=== PATIENT | male | born 1980 | race Caucasian/White ===

== ENCOUNTER 2019-03-07 22:45 | Inpatient (IN) | payer OTHER ==
--- NOTE | 2019-03-07 23:16 | RAD ---
EXAM: Single view of the chest HISTORY: Chest pain COMPARISON: None FINDINGS: Single view of the chest shows a normal sized cardiomediastinal silhouette. There is no rahul dence of consolidation, mass, or pleural effusion. The bones are unremarkable. IMPRESSION: No evidence of acute cardiopulmonary disease
[2019-03-07 23:22] LABS: #Basophils 0.1 thou/uL (0.0-0.2); #Eosinphils 0.1 thou/uL (0.0-0.7); #Lymphocytes 2.1 thou/uL (1.20-3.40); #Neutrophils 6.3 thou/uL (1.40-6.50); %Basophils 0.7 % (0.0-1.0); %Eosinophils 1.3 % (0.0-10.0); %Lymphocytes 22.2 % (21.0-51.0); %Monocytes 10.1 % (0.0-10.0); %Neutrophils 65.6 % (42.0-75.0); Hemoglobin 15.5 g/dL (14.0-18.0); Mean Corpuscular HGB CONC 33.4 g/dL (32.0-36.0); Mean Corpuscular Hemoglobin 29.1 pg (27.0-31.0); Mean Platelet Volume 10.7 fL (7.4-10.4); Platelet Count 132 thou/uL (130-400); RBC Distribution Width 12.8 % (11.5-14.5); Red Blood Cell (RBC) Count 5.31 mill/uL (4.70-6.10); White Blood Cell (WBC) Count 9.6 thou/uL (4.8-10.8)
[2019-03-07 23:46] LABS: ALT (SGPT) 30 U/L (8-55); AST (SGOT) 24 U/L (5-34); Albumin 4.5 g/dL (3.5-5.0); Alkaline Phosphatase 63 U/L (40-150); Anion Gap 15 mmol/L (10-20); BUN (Urea Nitrogen) 17 mg/dL (8.9-20.6); Bilirubin, Total 0.6 mg/dL (0.2-1.2); CK (CPK) 179 U/L (30-200); Calc. Creatinine Clearance 0 mL/min (70-130); Calcium 9.1 mg/dL (7.8-10.44); Carbon Dioxide 22 mmol/L (22-29); Chloride 105 mmol/L (98-107); Estimated GFR-MDRD 64; Globulin 2.4 g/dL (2.4-3.5); Glucose 124 mg/dL (70-105); Potassium 3.9 mmol/L (3.5-5.1); Protein, Total 6.9 g/dL (6.0-8.3); Sodium 138 mmol/L (136-145)
[2019-03-08 00:11] LABS: CKMB 4.1 ng/mL (0-6.6)
[2019-03-08] MEDS ORDERED: Enoxaparin Sodium 100 MG/ML SYRINGE ONE (01:02)
[2019-03-08] MEDS ORDERED: Ondansetron PF 4 MG/2 ML Vial IVP PRN (01:52)
[2019-03-08] MEDS ORDERED: Acetaminophen 325 MG TAB PO PRN (01:52)
[2019-03-08] MEDS ORDERED: Acetaminophen 650 MG Suppository PR PRN (01:52)
[2019-03-08] MEDS ORDERED: Ondansetron ODT 4 MG TAB PO PRN (01:52)
[2019-03-08 01:53] VITALS: BMI 33.9
[2019-03-08] MEDS ORDERED: Nitroglycerin 0.4 MG TAB (25 Tab Bottle) SL PRN ×3 (01:54→15:36)
[2019-03-08 02:52] LABS: Troponin I 1.119 ng/mL (< 0.028)
--- NOTE | 2019-03-08 04:02 | HP ---
PRIMARY CARE DOCTOR: The patient has no PCP. CODE STATUS: Full code. TIME OF EVALUATION: 1:20 a.m. CHIEF COMPLAINT: Chest pain. HISTORY OF PRESENT ILLNESS: This is a 39-year-old male patient, with past medical history of no significant medical problems. However, in the family, he has some past medical history of coronary artery disease with CABG in her mom, her mother had an acute MD at the age of 28 and the patient has . The patient presented today with chest pain, has been on and off for about a year improved with rest and with medication. In the ER, today the pain was more severe, around 8/10, and the patient decided to go to the ER to take care of these problems that has been bothering him for quite sometime. The symptoms were severe. REVIEW OF SYSTEMS: CONSTITUTIONAL: No fever, chills, or generalized weakness. RESPIRATORY: No cough, sputum production, or shortness of breath. CARDIOVASCULAR: The patient has chest pain, no palpitation. GASTROINTESTINAL: No nausea, vomiting, diarrhea, or abdominal pain. 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 GENITOURINARY: No burning on urination. EXTREMITIES: No leg swelling. All other systems were reviewed and negative except for the findings mentioned above. PAST MEDICAL HISTORY: As mentioned in the HPI. FAMILY HISTORY: As mentioned in the HPI. PAST SURGICAL HISTORY: Left ACL surgery, 1998. PSYCHIATRIC HISTORY: No previous psych history. SOCIAL HISTORY: The patient reported the use of marijuana. No other recreational drugs as well as cigarettes half a pack per day. The patient smoked for 25 years. KNOWN ALLERGIES: To sulfa. REPORTED MEDICATIONS: The patient takes no medications at home. PHYSICAL EXAMINATION: VITAL SIGNS: Blood pressure 159/97, heart rate 89, respiratory rate was 20, temperature 99.2. Pain was 2/10. GENERAL: The patient is obese, alert, oriented, no acute distress. HEENT: Eyes, normal conjunctivae. Moist oral mucosa. Anicteric. No JVD. RESPIRATORY: Bilateral air entry. No rales or wheezes. Symmetric expansion. CARDIOVASCULAR: Normal rate, regular rhythm. No murmurs. No gallop. No edema. ABDOMEN: Soft. Normal bowel sounds. MUSCULOSKELETAL: Baseline range of motion and strength. No tenderness. SKIN: Warm, intact. No pallor. No rash. No redness. Capillary refill seems to be intact. NEUROLOGICAL: No evidence of any new focal weakness. Cranial nerves seems to be intact. PSYCHIATRIC: The patient is in good mood. No optimal judgment. IMAGING STUDIES: EKG was reviewed. The patient has T-wave inverted in leads II, III, aVF, V4, V5, V6. ME 140, QRS 92, QT corrected 407. Chest x-ray was done. No evidence of acute cardiopulmonary disease. LABORATORY DATA: Labs were done. The patient has a white count of 9.6, hemoglobin 15.5, MCV 87, platelet count 132. Chemistry; sodium 138, potassium 3.9, chloride 105, carbon dioxide 22, anion gap 15, BUN 17, creatinine 1.26, GFR 64, glucose 124, calcium 9.1. LFTs were negative. Troponin 0.925, the second one is 1.19. ASSESSMENT AND PLAN: The patient will be placed in the hospital with the following medical problems: 1. Acute coronary syndrome. The patient has a [id number] myocardial infarction, will be treated with beta blockers, statins, aspirin, and Lovenox. Dr. Spencer has been consulted, will see the patient in the morning. We will follow recommendations. 2. Obesity. The patient has been advised to lose weight. 3. Hyperglycemia due to acute physical distress. 4. Deep venous thrombosis prophylaxis. Job ID: [id number]
[2019-03-08 05:36] LABS: #Basophils 0.1 thou/uL (0.0-0.2); #Eosinphils 0.1 thou/uL (0.0-0.7); #Lymphocytes 2.7 thou/uL (1.20-3.40); #Monocytes 0.7 thou/uL (0.11-0.59); #Neutrophils 4.8 thou/uL (1.40-6.50); %Eosinophils 1.3 % (0.0-10.0); %Lymphocytes 32.4 % (21.0-51.0); %Monocytes 8.2 % (0.0-10.0); %Neutrophils 57.2 % (42.0-75.0); Hemoglobin 15.6 g/dL (14.0-18.0); Mean Corpuscular HGB CONC 33.8 g/dL (32.0-36.0); Mean Corpuscular Hemoglobin 29.3 pg (27.0-31.0); Mean Corpuscular Volume 86.7 fL (78.0-98.0); Mean Platelet Volume 10.7 fL (7.4-10.4); Platelet Count 131 thou/uL (130-400); RBC Distribution Width 12.8 % (11.5-14.5); Red Blood Cell (RBC) Count 5.33 mill/uL (4.70-6.10); White Blood Cell (WBC) Count 8.3 thou/uL (4.8-10.8)
[2019-03-08 05:51] LABS: Anion Gap 12 mmol/L (10-20); BUN (Urea Nitrogen) 15 mg/dL (8.9-20.6); Calc. Creatinine Clearance 144 mL/min (70-130); Carbon Dioxide 21 mmol/L (22-29); Chloride 107 mmol/L (98-107); Estimated GFR-MDRD 87; Glucose 96 mg/dL (70-105); Potassium 4.1 mmol/L (3.5-5.1); Sodium 136 mmol/L (136-145)
[2019-03-08 05:54] LABS: Troponin I 1.328 ng/mL (< 0.028)
[2019-03-08] MEDS: Metoprolol Tartrate 25 MG TAB PO SCH ×2 (08:04→20:21)
--- NOTE | 2019-03-08 09:55 | PDOC.CTH ---
Cardiology Progress Note - Subjective HPI: This is a 39 yo M who came in last night with chest pain. This has been going on for about 1 year. He states previously he was able to walk around the grocery store but over the last few months the chest pain has been coming on with exertion walking or doing yardwork. He describes pain as 8/10, pressure, radiating to neck and left arm. The last few days the pain has been coming on at rest and lasting about 45 minutes. He took ASA before coming to the ER. He smokes ppd for 25 years. His mother had NH at age 28 and CABG at age 38. PMH: neg PSH: ACL 1998 Meds: none, occasionally uses albuterol Allergies: sulfa Soc Hx: ppd 25 years, THC, no alc, no other drugs Fm Hx: mother had NH at age 28 and CABG at age 38, father lung cancer REVIEW OF SYSTEMS: Gen: no fever, chills, or sweats Neuro: no numbness/tingling, no weakness, denies headache Eyes: no visual changes Resp: no cough, no SOB, no wheeze Card: SEE HPI GI: no N/V/D, no abdominal pain : no dysuria, no hematuria MSK: no myalgias, no joint pain/stiffness Heme: no blood thinners Skin: no rash, no erythema PHYSICAL EXAMINATION: General: NAD, alert and oriented x3 HEENT: PERRLA, EOMI, normal sclera, oropharynx without erythema or exudate Neck: Supple. Full ROM. Heart/Cardiovascular System: RRR, Cap refill < 3 seconds, no rub, no murmur Lungs/Respiratory System: clear to auscultation bilaterally. No increased work of breathing. Room air. Abdomen/Gastro-Intestinal System: no abdominal tenderness, normal bowel sounds, no masses, no organomegaly Extremities: Warm extremities. No cyanosis or edema. Neuro: No gross deficits appreciated. CN 2-12 grossly intact Psychiatry: Awake, Alert and cooperative with exam Skin: No lesions, rashes, or ulcers Musculoskeletal: Full ROM EKG: t wave inv inferior leads, ST depression V4-V6 A/P: # Unstable Angina - was exertional in past, now coming on at rest - trop 0.925-> 1.119 -> 1.328 - LUIGI 4 ASA, >2 angina episodes, EKG changes, trop - strong fm hx, smoking - ordered EKG with posterior leads ordered - discussed with Dr Traylor to go for cath today - Objective Vital Signs Temp Pulse Resp BP BP Pulse Ox 03/08/19 07:58 98.1 F 65 20 125/83 96 03/08/19 04:00 98.5 F 67 20 133/81 99 03/08/19 01:46 98.2 F 71 16 154/87 H 98 Weight 98.293 kg - Labs Result Diagrams: 03/08/19 05:11 03/08/19 05:11 Troponin/CKMB CK-MB (CK-2) 4.1 ng/mL (0-6.6) 03/07/19 23:09 Troponin I 1.328 ng/mL (< 0.028) H* 03/08/19 05:11
[2019-03-08] MEDS ORDERED: Communication Order-Pharmacy FS SCH ×2 (11:45→15:36)
[2019-03-08] MEDS ORDERED: Nitroglycerin 100MG/250ML BOT 250 ML ONE (12:20)
[2019-03-08] MEDS ORDERED: Heparin 10,000 UNITS/1 ML VIAL ONE (12:20)
--- NOTE | 2019-03-08 13:03 | CON ---
DATE OF CONSULTATION: Please also refer to the notes dictated by the resident, Dr. Jarrett. INDICATION FOR CONSULTATION: A 39-year-old patient with non ST-segment elevation myocardial infarction. HISTORY OF PRESENT ILLNESS: This very unfortunate 39-year-old gentleman, who is very pleasant. He has had no previous cardiac history, but has been having some chest discomfort for quite some time, became worse. He presented to the emergency room. Cardiac enzymes are indicative of a non-ST segment elevation myocardial infarction. He will be advised to undergo cardiac catheterization. The first troponin I was 0.925, has increased up to 1.328. Blood sugar was 124. He does not give a history of having diabetes or any other previous history. He does have a history of tobacco abuse; however, on and off for his last approximately 15 to 20 years. He denies any hypercholesterolemia or diabetes. He is unaware of any history of hypertension in the past. He does have family history of coronary artery disease. PAST MEDICAL HISTORY: Please refer to the notes dictated by Dr. Jarrett. SOCIAL HISTORY: Please refer to the notes dictated by Dr. Jarrett. REVIEW OF SYSTEMS: Please refer to the notes dictated by Dr. Jarrett. His review of systems, also refer to those notes. He denies any significant , GI, or pulmonary problems. MEDICATIONS: Please refer to the notes dictated by Dr. Jarrett. ALLERGIES: PLEASE REFER TO THE NOTES DICTATED BY DR. JARRETT. PHYSICAL EXAMINATION: GENERAL: Revealed a well-developed, well-nourished gentleman, who is in no acute distress at this time. VITAL SIGNS: Blood pressure 125/83. He is afebrile. Heart rate 65, it was sinus rhythm. Respiratory rate was about 20. HEENT: Normocephalic and atraumatic. Carotid pulses are present without any bruits. CHEST: Clear to auscultation. CARDIOVASCULAR: Reveals a regular rate and rhythm. I do not hear any significant murmurs, heaves, thrills, bruits or rubs. ABDOMEN: Shows some obesity. EXTREMITIES: Showed no clubbing, cyanosis, or edema. Pedal pulses are present. Radial pulses are present. NEUROLOGIC: The patient appears to be intact. LABORATORY DATA: As per Dr. Jarrett. We will need to address the troponin I. ASSESSMENT AND PLAN: Given the fact that he is young and has risk factors of coronary artery disease, and continues to have elevation of cardiac enzymes, I have advised him to undergo cardiac catheterization. I have explained the procedure and the risks to him to include bleeding, infection, possibility of myocardial infarction, CVA, renal insufficiency, allergic contrast reaction, and the possibility of and he understands and agrees to proceed. We will plan for urgent cardiac catheterization to evaluate his coronary status and he may need to undergo further intervention. Job ID: [id number]
[2019-03-08] MEDS ORDERED: Verapamil 5 MG/2 ML VIAL ONE (13:54)
[2019-03-08] MEDS ORDERED: Heparin 25,000 units/D5W 500 ML IVPB SCH (14:00)
[2019-03-08 14:19] LABS: Platelet Count 139 thou/uL (130-400)
[2019-03-08] MEDS ORDERED: Iopamidol 370 76% 100 ML VIAL ONE (14:32)
[2019-03-08] MEDS ORDERED: Sodium Chloride 0.9% 200 ML IV PRN ×2 (14:54→15:36)
[2019-03-08] MEDS ORDERED: Acetaminophen/Codeine 30-300mg Tablet PO PRN ×4 (14:54→15:36)
[2019-03-08] MEDS: Sodium Chloride 0.9% 1,000 ML IV SCH (15:31)
[2019-03-08] MEDS: Heparin 10,000 UNITS/ 10 ML VIAL SLOW IVP SCH ×2 (15:42→22:35)
--- NOTE | 2019-03-08 17:30 | PDOC.EVN ---
Event Note - Event Note Event Note: Chart reviewed, pt seen. Feels better. S1, S2, reg Lungs CTA. Pt will likely need cardiac cath.
[2019-03-08] MEDS ORDERED: Atorvastatin Calcium 40 MG TAB PO SCH (21:00)
--- NOTE | 2019-03-08 21:13 | CON ---
DATE OF CONSULTATION: HISTORY OF PRESENT ILLNESS: This is a 39-year-old gentleman with about a year's history of chest pain with a more severe episode prompting a visit to the emergency room last night where his troponin showed slight bump. He has been pain-free since then. He underwent cardiac catheterization today showing severe three-vessel disease including an occluded right, occluded LAD, diseased diagonal, and obtuse marginal branches. His left ventricular systolic function was relatively well preserved. PAST MEDICAL HISTORY: The patient denies any history of hypertension, diabetes mellitus, or dyslipidemia, but admits to not seeing a physician. FAMILY HISTORY: He does have a family history of heart disease at a young age. 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 PAST SURGICAL HISTORY: Left knee surgery many years ago. The patient is . ALLERGIES: TO SULFA. MEDICATIONS: No current home medicines. PHYSICAL EXAMINATION: GENERAL: Appears stated age. VITAL SIGNS: 5 feet 7 inches, 316 pounds, blood pressure 140/80, heart rate 60. NECK: No carotid bruits. LUNGS: Clear to auscultation anteriorly. CARDIAC: Regular rate and rhythm. No murmurs. ABDOMEN: Obese, nontender. No masses. EXTREMITIES: No peripheral edema. Palpable pedal pulses bilaterally. A dressing on the right radial artery. Left radial artery is palpable and is nondominant arm and has a good Jose test. PLAN: At this time is for multivessel bypass grafting using COWART and radial. Informed consent has been obtained. Job ID: [id number]
[2019-03-09] MEDS ORDERED: CEFAZOLIN 2 GM in Premix Bag 1 BAG IVPB SCH (05:00)
[2019-03-09] MEDS: Metoprolol Tartrate 25 MG TAB PO SCH (05:29)
[2019-03-09] MEDS: Sodium Chloride 0.9% 1,000 ML IV SCH (05:29)
[2019-03-09 05:44] LABS: Cardiac Risk 6.4 (Less than 4.5)
[2019-03-09] MEDS: Heparin 10,000 UNITS/ 10 ML VIAL SLOW IVP SCH (06:33)
[2019-03-09] MEDS ORDERED: Albumin 5% 0 ML ONE (06:42)
[2019-03-09] MEDS ORDERED: Heparin 10,000 UNITS/1 ML VIAL 30,000 UNITS in Sodium Chloride 0.9% 1,000 ML FS SCH (07:00)
[2019-03-09] MEDS ORDERED: Midazolam HCl 2 mg/2 ml Vial ONE (08:36)
[2019-03-09] MEDS ORDERED: Midazolam HCl 5 mg/5 ml Vial ONE (08:57)
[2019-03-09] MEDS ORDERED: Fentanyl 250 MCG/5 ML VIAL ONE (08:57)
[2019-03-09] MEDS ORDERED: Rocuronium Bromide 50 MG/5 ML VIAL ONE (13:51)
[2019-03-09] MEDS ORDERED: Protamine Sulfate 250 MG/25 ML VIAL ONE (13:52)
[2019-03-09] MEDS ORDERED: Heparin 30,000 units/30 ml VIAL ONE (13:52)
[2019-03-09] MEDS ORDERED: Thrombin 5000 UNITS/5 ML VIAL ONE (13:52)
[2019-03-09] MEDS ORDERED: Cardioplegic Soln 1,000 ML BAG ONE (13:52)
[2019-03-09] MEDS ORDERED: Calcium Chloride 1 GM/10 ML Abboject SYRINGE ONE (13:52)
[2019-03-09] MEDS ORDERED: Papaverine 60 MG/2 ML VIAL ONE (13:52)
[2019-03-09] MEDS ORDERED: PROPOFOL 200 MG/20 ML VIAL ONE (13:52)
[2019-03-09] MEDS ORDERED: Lidocaine 2% PF 100 mg/5 ml Syringe ONE (13:52)
[2019-03-09] MEDS ORDERED: Aminocaproic Acid 5 GM/20 ML VIAL ONE (13:52)
[2019-03-09] MEDS ORDERED: Magnesium 5 GM/10 ML VIAL ONE (13:52)
[2019-03-09] MEDS ORDERED: Potassium Chloride 60 MEQ/30 ML VIAL ONE (13:52)
[2019-03-09] MEDS ORDERED: Vecuronium 10 MG VIAL ONE (13:52)
[2019-03-09] MEDS ORDERED: ePHEDrine 50 MG/ML VIAL ONE (13:52)
[2019-03-09] MEDS ORDERED: Sodium Bicarb 50 MEQ/50 ML VIAL ONE (13:52)
[2019-03-09] MEDS ORDERED: Heparin 5,000 UNITS/ML VIAL ONE (13:52)
[2019-03-09] MEDS ORDERED: Phenylephrine HCL 10 MG/ML VIAL ONE (13:52)
[2019-03-09] MEDS ORDERED: Mannitol 12.5 GM/50 ML ONE (13:52)
[2019-03-09] MEDS ORDERED: Rocuronium Bromide 10 MG/ML (10ML VIAL) ONE (13:52)
[2019-03-09] MEDS ORDERED: Norepinephrine 8 MG in Sodium Chloride 0.9% 250 ML 250 ML IVPB PRN (15:25)
[2019-03-09] MEDS ORDERED: Fentanyl 100 MCG/2 ML VIAL SLOW IVP PRN (15:25)
[2019-03-09] MEDS ORDERED: hydrALAZINE 20 MG/ML VIAL SLOW IVP PRN (15:25)
[2019-03-09] MEDS ORDERED: Post-Op Insulin Drip Protocol IVPB ONE (15:25)
[2019-03-09] MEDS ORDERED: Acetaminophen 325 MG TAB PO PRN (15:25)
[2019-03-09] MEDS ORDERED: HYDROcodone/Acetaminophen 5/325 mg Tablet PO PRN (15:25)
[2019-03-09] MEDS ORDERED: Guaifenesin DM 100-10/5 ML UDCUP PO PRN (15:25)
[2019-03-09] MEDS ORDERED: Bisacodyl 5 MG TAB PO PRN (15:25)
[2019-03-09] MEDS ORDERED: Bisacodyl 10 MG SUPP PR PRN (15:25)
[2019-03-09] MEDS ORDERED: Hetastarch 6% 500 ML 500 ML IVPB PRN (15:25)
[2019-03-09] MEDS ORDERED: Nitroglycerin 50 MG/250 ML BOT 250 ML IVPB PRN (15:25)
[2019-03-09] MEDS ORDERED: Morphine 2 MG/ML SYRINGE SLOW IVP PRN (15:25)
[2019-03-09] MEDS ORDERED: Potassium Chloride 20 MEQ/100 ML PREMIX BAG IVPB PRN (15:25)
[2019-03-09] MEDS ORDERED: Promethazine HCl 25 MG/ML VIAL IM PRN (15:25)
[2019-03-09] MEDS ORDERED: Magnesium 2 GM/50 ML 2 GM in Premix Bag 1 BAG IVPB SCH (15:25)
[2019-03-09] MEDS ORDERED: Mag-Al 1200 mg/1200 mg/30 ML UDCUP PO PRN (15:25)
[2019-03-09] MEDS ORDERED: DOPamine 400 MG/D5W 250 ML 250 ML IVPB PRN (15:25)
--- NOTE | 2019-03-09 15:50 | RAD ---
Chest one view HISTORY: Heart surgery. COMPARISON: 03/07/2019. FINDINGS: Cardiac silhouette is magnified by projection. Pulmonary vasculature upper limits of normal . Mediastinum is midline. Postoperative changes now evident. Tip of an endotracheal catheter overlies the thoracic inlet. Nasogastric tube descends the abdomen. Bilateral thoracostomy tubes and mediastinal drain partially visualized. Tip of a right subclavian central venous catheter overlies the cavoatrial junction. Mild atelectasis at each base. No evidence of pneumothorax. 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 IMPRESSION: Postoperative changes mediastinum with lines and tubes as detailed above.
[2019-03-09 15:52] LABS: #Basophils 0.1 thou/uL (0.0-0.2); #Lymphocytes 1.4 thou/uL (1.20-3.40); #Monocytes 1.1 thou/uL (0.11-0.59); #Neutrophils 15.7 thou/uL (1.40-6.50); %Basophils 0.5 % (0.0-1.0); %Eosinophils 0.3 % (0.0-10.0); %Lymphocytes 7.7 % (21.0-51.0); %Neutrophils 85.6 % (42.0-75.0); Mean Corpuscular HGB CONC 33.2 g/dL (32.0-36.0); Mean Corpuscular Hemoglobin 29.2 pg (27.0-31.0); Mean Platelet Volume 10.5 fL (7.4-10.4); Platelet Count 96 thou/uL (130-400); RBC Distribution Width 12.8 % (11.5-14.5); Red Blood Cell (RBC) Count 5.14 mill/uL (4.70-6.10); White Blood Cell (WBC) Count 18.4 thou/uL (4.8-10.8)
[2019-03-09] MEDS ORDERED: Morphine 4 MG/ML VIAL ONE (15:55)
[2019-03-09 15:57] LABS: INR-International Normal Ratio 1.1; PTT 25.9 SEC (22.9-36.1); Prothrombin Time 14.3 SEC (12.0-14.7)
[2019-03-09] MEDS ORDERED: Nitroglycerin 50 MG/250 ML BOT 0 ML ONE (15:58)
[2019-03-09 16:06] LABS: Actual Bicarbonate (HCO3a) 22.5 mEq/L (22-28); Base Excess (BEa) -3.2 mEq/L (-2.0 to +3.0); CO2 Tension 42.9 mmHg (35.0-45.0); Calcium, Ionized 1.08 mmol/L (1.12-1.30); Carboxyhemoglobin (COHb) 1.4 gm% (0.0-3.0); O2 Tension (PaO2) 91.8 mmHg (80.0-100.0); Potassium - ABG Lab 4.02 mmol/L (3.70-5.30); pH, Arterial 7.34 (7.35-7.45)
[2019-03-09 16:08] LABS: Anion Gap 11 mmol/L (10-20); BUN (Urea Nitrogen) 11 mg/dL (8.9-20.6); Calc. Creatinine Clearance 166 mL/min (70-130); Calcium 7.7 mg/dL (7.8-10.44); Carbon Dioxide 23 mmol/L (22-29); Chloride 108 mmol/L (98-107); Estimated GFR-MDRD Greater than 90; Glucose 133 mg/dL (70-105); Potassium 4.2 mmol/L (3.5-5.1); Sodium 138 mmol/L (136-145)
[2019-03-09 16:12] LABS: ALV-art Gradient 211.075 (0-20); Puncture Site ALINE
[2019-03-09] MEDS ORDERED: Insulin Regular 300 UNITS/3 ML VIAL SC PRN (16:23)
[2019-03-09] MEDS ORDERED: HUMULIN R 100 UNITS in Sodium Chloride 0.9% 100 ML IVPB SCH (16:23)
[2019-03-09] MEDS ORDERED: Dextrose 5% in Water 1,000 ML IV PRN (16:23)
[2019-03-09] MEDS ORDERED: Dextrose 50% Abboject 50 ML SYRINGE SLOW IVP PRN (16:23)
[2019-03-09] MEDS: CEFAZOLIN 2 GM in Premix Bag 1 BAG IVPB SCH (16:43)
[2019-03-09] MEDS: Ketorolac Tromethamine 30 MG/ML VIAL IVP SCH ×2 (17:15→23:01)
[2019-03-09] MEDS: Ondansetron PF 4 MG/2 ML Vial IVP PRN (17:15)
[2019-03-09 17:24] LABS: Actual Bicarbonate (HCO3a) 22.1 mEq/L (22-28); CO2 Tension 39.9 mmHg (35.0-45.0); Calcium, Ionized 1.08 mmol/L (1.12-1.30); O2 Tension (PaO2) 110.2 mmHg (80.0-100.0); pH, Arterial 7.36 (7.35-7.45)
[2019-03-09 17:25] LABS: ALV-art Gradient 53.825 (0-20); Puncture Site LINE
--- NOTE | 2019-03-09 17:56 | PDOC.PN ---
- Subjective Encounter Start Date: 03/09/19 Encounter Start Time: 15:50 Subjective: on vent, post cabg -: recieving blood - Objective Resuscitation Status - Order Detail: 03/08/19 01:52 Resuscitation Status Routine Resuscitation Status: FULL: Full Resuscitation MAR Reviewed: Yes Vital Signs & Weight: Vital Signs (12 hours) Temp Pulse Resp BP BP Pulse Ox 03/09/19 17:34 99 03/09/19 15:46 109 H 121/72 03/09/19 15:35 97.0 F L 15 98 03/09/19 07:38 98.1 F 58 L 14 120/65 96 Weight Weight 216 lb 11.2 oz Most Recent Monitor Data Heart Rate from ECG 93 NIBP 165/109 NIBP BP-Mean 127 Respiration from ECG 21 SpO2 99 I&O: 03/08/19 03/09/19 03/10/19 06:59 06:59 06:59 Intake Total 1030 Output Total 800 260 Balance 230 -260 Result Diagrams: 03/09/19 15:40 03/09/19 15:40 Additional Labs: Accuchecks 03/09/19 03/09/19 03/09/19 15:43 13:52 13:28 POC Glucose 122 H 140 H 119 H 03/09/19 03/09/19 12:49 11:31 POC Glucose 117 H 111 H Phys Exam - Physical Examination HEENT: PERRLA, sclera anicteric Neck: no JVD, supple Respiratory: no wheezing chest tubes+ Cardiovascular: RRR, no significant murmur Gastrointestinal: soft, non-tender, positive bowel sounds Musculoskeletal: no edema, pulses present Neurological: non-focal Dx/Plan (1) S/P CABG (coronary artery bypass graft) Code(s): Z95.1 - PRESENCE OF AORTOCORONARY BYPASS GRAFT Status: Acute (2) CAD (coronary artery disease) Code(s): I25.10 - ATHSCL HEART DISEASE OF [place] CORONARY ARTERY W/O ANG PCTRS Status: Acute Qualifiers: Coronary Disease-Associated Artery/Lesion type: bypass graft [place] vs. transplanted heart: [place] heart (3) Dyslipidemia Code(s): E78.5 - HYPERLIPIDEMIA, UNSPECIFIED Status: Acute (4) Tobacco abuse Code(s): Z72.0 - TOBACCO USE Status: Chronic (5) NSTEMI (non-ST elevated myocardial infarction) Code(s): I21.4 - NON-ST ELEVATION (NSTEMI) MYOCARDIAL INFARCTION Status: Acute (6) Obesity (BMI 30.0-34.9) Code(s): E66.9 - OBESITY, UNSPECIFIED Status: Chronic - Plan just arrived from OR, is on vent -: hemostable now -: weaning per protocol -: continue asp, nebs -: will f/u * . Review of Systems - Medications/Allergies Allergies/Adverse Reactions: Allergies Allergy/AdvReac Type Severity Reaction Status Date / Time Sulfa (Sulfonamide Allergy Verified 03/08/19 02:01 Antibiotics) Medications: Current Medications Acetaminophen (Tylenol) 650 mg PO Q6H PRN PRN Reason: Headache/Fever Or Mild Pain Hydrocodone Bitart/Acetaminophen ([place] 5/325) 1 tab PO Q4H PRN PRN Reason: Moderate Pain (4-6) Hydrocodone Bitart/Acetaminophen ([place] 5/325) 2 tab PO Q4H PRN PRN Reason: Severe Pain (7-10) Al Hydroxide/Mg Hydroxide (Maalox) 30 ml PO Q4H PRN PRN Reason: Indigestion Albumin Human (Albumin 5%) 12.5 gm IVPB Q6H PRN PRN Reason: To Maintain SBP> 90 mmHG Stop: 03/10/19 15:26 Albumin Human (Albumin 5%) 25 gm IVPB Q6H PRN PRN Reason: To Maintain SBP > 90 mmHG Stop: 03/10/19 15:26 Albuterol/Ipratropium (Duoneb) 3 ml NEB [id number] PRN PRN Reason: SHORTNESS OF BREATH Albuterol/Ipratropium (Duoneb) 3 ml NEB Q3DT-[id number] JUAN A Aspirin (Aspirin) 325 mg PO DAILY JUAN A Bisacodyl (Dulcolax) 10 mg PO Q12H PRN PRN Reason: Constipation Bisacodyl (Dulcolax) 10 mg MT Q12H PRN PRN Reason: Constipation Dextrose/Water (Dextrose 50%) 25 gm SLOW IVP PRN PRN PRN Reason: PER HYPOGLYCEMIC PROTOCOL Famotidine (Pepcid) 20 mg SLOW IVP Q12HR JUAN A Fentanyl (Sublimaze) 25 mcg SLOW IVP Q2H PRN PRN Reason: Moderate Pain (4-6) Stop: 03/11/19 15:06 Fentanyl (Sublimaze) 50 mcg SLOW IVP Q2H PRN PRN Reason: Severe Pain (7-10) Stop: 03/11/19 15:06 Glucagon (Glucagon) 1 mg SC PRN PRN PRN Reason: PER HYPOGLYCEMIC PROTOCOL Guaifenesin/Dextromethorphan (Robitussin Dm) 15 ml PO Q4H PRN PRN Reason: Cough Hydralazine HCl (Apresoline) 10 mg SLOW IVP Q6H PRN PRN Reason: To Maintain SBP< 140mmHG Cefazolin Sodium/Dextrose 2 gm (/ Device) 50 mls @ 100 mls/hr IVPB 0100,0900, 1700 JUAN A Stop: 03/10/19 09:29 Last Admin: 03/09/19 16:43 Dose: 50 mls Dopamine HCl/Dextrose (Dopamine 400 Mg/D5w 250 Ml) 250 mls @ 0 mls/hr IVPB PRN PRN; Protocol PRN Reason: To maintain SBP > 90 mmHG Hetastarch/Sodium Chloride (Hespan) 500 mls @ 0 mls/hr IVPB PRN PRN PRN Reason: To Maintain SBP > 90mmHg Stop: 03/10/19 15:06 Norepinephrine Bitartrate 8 mg (/ Sodium Chloride) 258 mls @ 0 mls/hr IVPB PRN PRN; Protocol PRN Reason: To maintain SBP > 90 mmHG Nicardipine HCl 25 mg/ Sodium (Chloride) 260 mls @ 0 mls/hr IVPB INF PRN; Protocol PRN Reason: To Maintain SBP< 140mmHG Nitroglycerin/Dextrose (Nitroglycerin 50 Mg/250 Ml Bot) 250 mls @ 0 mls/hr IVPB PRN PRN; Protocol PRN Reason: To Maintain SBP< 140mmHG Insulin Human Regular 100 (units/ Sodium Chloride) 101 mls @ 0 mls/hr IVPB INF JUAN A; Protocol Dextrose/Water (D5w) 1,000 mls @ 0 mls/hr IV INF PRN PRN Reason: PRN HYPOGLYCEMIC PROTOCOL Insulin Glargine (Lantus) 0 units SC ONE PRN PRN Reason: PER OPEN HEART ORDERS Stop: 03/09/19 23:00 Insulin Human Regular (Humulin R) 0 units SC Q4H PRN; Protocol PRN Reason: POST OP SLIDING SCALE Last Admin: 03/09/19 15:57 Dose: 2 unit Ketorolac Tromethamine (Toradol) 15 mg IVP Q6HR JUAN A Stop: 03/12/19 18:01 Last Admin: 03/09/19 17:15 Dose: 15 mg Morphine Sulfate (Morphine) 2 mg SLOW IVP Q15MIN PRN PRN Reason: Severe Pain (7-10) Ondansetron HCl (Zofran) 4 mg IVP Q6H PRN PRN Reason: Nausea/Vomiting Last Admin: 03/09/19 17:15 Dose: 4 mg Potassium Chloride (Kcl) 20 meq IVPB PRN PRN PRN Reason: K level </= 4.0 Promethazine HCl (Phenergan) 6.25 mg IM Q4H PRN PRN Reason: Nausea/Vomiting
[2019-03-09] MEDS: HYDROcodone/Acetaminophen 5/325 mg Tablet PO PRN (19:33)
[2019-03-09] MEDS: Fentanyl 100 MCG/2 ML VIAL SLOW IVP PRN ×2 (20:11→22:12)
[2019-03-09] MEDS ORDERED: Famotidine/PF 20 mg/2ml Vial SLOW IVP SCH (21:00)
[2019-03-09 21:24] LABS: Hemoglobin 15.3 g/dL (14.0-18.0)
[2019-03-09 21:36] LABS: Potassium 4.1 mmol/L (3.5-5.1)
[2019-03-10] MEDS: CEFAZOLIN 2 GM in Premix Bag 1 BAG IVPB SCH ×2 (00:26→09:14)
[2019-03-10] MEDS: HYDROcodone/Acetaminophen 5/325 mg Tablet PO PRN ×5 (04:14→21:26)
[2019-03-10 05:14] LABS: #Lymphocytes 1.4 thou/uL (1.20-3.40); #Monocytes 1.6 thou/uL (0.11-0.59); #Neutrophils 10.9 thou/uL (1.40-6.50); %Basophils 0.1 % (0.0-1.0); %Eosinophils 0.1 % (0.0-10.0); %Lymphocytes 9.7 % (21.0-51.0); %Monocytes 11.3 % (0.0-10.0); %Neutrophils 78.7 % (42.0-75.0); Mean Corpuscular HGB CONC 32.4 g/dL (32.0-36.0); Mean Corpuscular Hemoglobin 28.5 pg (27.0-31.0); Mean Corpuscular Volume 87.9 fL (78.0-98.0); Mean Platelet Volume 10.8 fL (7.4-10.4); Platelet Count 135 thou/uL (130-400); RBC Distribution Width 13.1 % (11.5-14.5); Red Blood Cell (RBC) Count 5.27 mill/uL (4.70-6.10); White Blood Cell (WBC) Count 13.9 thou/uL (4.8-10.8)
[2019-03-10] MEDS: Ketorolac Tromethamine 30 MG/ML VIAL IVP SCH ×4 (05:15→23:13)
[2019-03-10] MEDS: Fentanyl 100 MCG/2 ML VIAL SLOW IVP PRN ×2 (05:19→11:05)
[2019-03-10 05:28] LABS: Anion Gap 10 mmol/L (10-20); BUN (Urea Nitrogen) 12 mg/dL (8.9-20.6); Calc. Creatinine Clearance 137 mL/min (70-130); Calcium 8.3 mg/dL (7.8-10.44); Carbon Dioxide 24 mmol/L (22-29); Chloride 107 mmol/L (98-107); Estimated GFR-MDRD 82; Glucose 119 mg/dL (70-105); Potassium 4.2 mmol/L (3.5-5.1); Sodium 137 mmol/L (136-145)
--- NOTE | 2019-03-10 07:43 | RAD ---
AP VIEW CHEST: HISTORY: Status post open heart surgery. AP view chest is obtained on 03/10/2019. Comparison made to previous exam from 03/09/2019. FINDINGS: There has been interval extubation of the patient. Sternotomy wires seen. Mild cardiomegal y seen. Left-sided chest tube is again seen. The lungs are well aerated. A right subclavian central line is again seen. No acute intrathoracic abnormality seen. IMPRESSION: Interval extubation of patient. Transcribed Date/Time: 03/10/2019 8:02 AM
[2019-03-10] MEDS: Aspirin 325 MG TAB PO SCH (09:15)
[2019-03-10] MEDS: Polyethylene Glycol 3350 17 GM Packet PO SCH (09:21)
--- NOTE | 2019-03-10 09:26 | OP ---
DATE OF PROCEDURE: 03/09/2019 PREOPERATIVE DIAGNOSIS: Coronary artery disease. PROCEDURES PERFORMED: Coronary artery bypass graft x5, left internal mammary artery good quality to a 1 mm rather atretic LAD, saphenous vein good quality to a 2.5 mm distal right coronary extending onto the orifice of the PDA, good quality saphenous vein to a 1.5 to 2 mm diagonal, saphenous vein graft to a 1.25 mm to 1.5 mm OM1, 2 mm OM2. ANESTHESIA: General. CLINICAL LEADER: Brayden. TRANSFUSION: None. DESCRIPTION OF PROCEDURE: After adequate anesthesia had been obtained, the patient was prepped and draped and I began an endovascular vein harvest of the right greater saphenous vein. Ultrasound had suggested this was the better of the veins in the lower legs. Following Dr. Owen's arrival, he completed the harvest while I performed a median sternotomy harvesting the left internal mammary artery. The sternum was entered and the right pleura was entered distally on sternal entry. Following mammary artery harvest, the patient was heparinized and the mammary divided distally and passed posterior to the thymus gland. Aorta and right atrium were cannulated and cardiopulmonary bypass was begun. Vessels were inspected for grafting. The patient's heart was somewhat large, but not hypertrophic. Aorta was cross clamped and after a liter of cold blood cardioplegia, the 5 distal anastomosis were completed. Cross-clamp was removed and the partial occluding clamp placed in the diagonal, the OM1 and the right coronary graft were anastomosed to the aortic root. The OM2 graft was anastomosed to the OM1 graft about 1.5 cm from the aortic root. Proximal and distal anastomosis were then hemostatic after examination and the patient was weaned from cardiopulmonary bypass. Bilateral pleural drains as well as a mediastinal drain were placed. The sternum was reapproximated with #7 interrupted wire using vancomycin paste on the sternal edges, platelet rich blood and platelet poor plasma. Subcutaneous tissue and skin were closed in layers and the patient is to be taken to the ICU in guarded condition. Job ID: [id number]
--- NOTE | 2019-03-10 12:44 | PDOC.CTH ---
Cardiology Progress Note - Subjective The pt seen and examined. No overnight events. He has sit up to a chair for 2 hours this AM. - Objective Vital Signs Temp Pulse Ox 03/10/19 12:00 98.5 F 03/10/19 08:00 94 L 03/10/19 07:00 99.2 F 03/10/19 04:00 99.0 F Weight 216 lb 11.2 oz 03/09/19 03/10/19 03/11/19 06:59 06:59 06:59 Intake Total 1030 1066.2 600 Output Total 800 1100 325 Balance 230 -33.8 275 - Physical Examination General/Neuro: alert & oriented x3 Neck: no JVD present Lungs: other: (diminished at bases) Heart: RRR Abdomen: soft Extremities: other: (Generalized edema) - Telemetry Telemetry Rhythm: SR - Labs Result Diagrams: 03/10/19 04:45 03/10/19 03:30 Troponin/CKMB CK-MB (CK-2) 4.1 ng/mL (0-6.6) 03/07/19 23:09 Troponin I 1.328 ng/mL (< 0.028) H* 03/08/19 05:11 - Assessment/Plan 1. CAD with S/P CABG x5 with COWART-LAD, SVG-PDA, SVG-Diag, SVG-OM1 and OM2 on 08/2019 - On ASA 325mg qd; will start Lipitor 40mg qd from tonight. Will start BBlocker and DARCIE with stable VS. 2. HLD - will start Lipitor 40mg qd from tonight 3. Tobacco abuse - smoking cessation education given to the pt and family MAR reviewed * Echo on 03/09/2019 with EF 50-55%, mild dilated LA, trace MR and TR, and mild IA Pt. seen and eval. by me. 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 He is doing well s/p CABG. Chest clear. RRR. Review of Systems - Review of Systems Constitutional: reports: weakness EENTM: reports: no symptoms reported Respiratory: reports: no symptoms reported Cardiac (ROS): reports: no symptoms reported ABD/GI: reports: no symptoms reported
--- NOTE | 2019-03-10 14:41 | PDOC.PN ---
- Subjective Encounter Start Date: 03/10/19 Encounter Start Time: 13:00 Subjective: sitting in chair, off vent overnight -: at bedside - Objective Resuscitation Status - Order Detail: 03/08/19 01:52 Resuscitation Status Routine Resuscitation Status: FULL: Full Resuscitation MAR Reviewed: Yes Vital Signs & Weight: Vital Signs (12 hours) Temp Pulse Ox 03/10/19 12:00 98.5 F 03/10/19 08:00 94 L 03/10/19 07:00 99.2 F 03/10/19 04:00 99.0 F Weight Weight 216 lb 11.2 oz Most Recent Monitor Data Heart Rate from ECG 96 NIBP 135/79 NIBP BP-Mean 97 Respiration from ECG 35 SpO2 95 I&O: 03/09/19 03/10/19 03/11/19 06:59 06:59 06:59 Intake Total 1030 1066.2 600 Output Total 800 1100 570 Balance 230 -33.8 30 Result Diagrams: 03/10/19 04:45 03/10/19 03:30 Additional Labs: Accuchecks 03/10/19 03/09/19 03/09/19 00:44 20:17 15:43 POC Glucose 87 110 122 H Phys Exam - Physical Examination HEENT: PERRLA, moist MMs Neck: no JVD, supple Respiratory: no wheezing, no rales chest tube+ Cardiovascular: RRR, no significant murmur Gastrointestinal: soft, non-tender, positive bowel sounds Musculoskeletal: no edema, pulses present Neurological: non-focal, moves all 4 limbs Psychiatric: normal affect, A&O x 3 Dx/Plan (1) S/P CABG (coronary artery bypass graft) Code(s): Z95.1 - PRESENCE OF AORTOCORONARY BYPASS GRAFT Status: Acute Comment: cabg x5 (benjamin to very small lad, svg to distal rca, pda, diagonal, Om1 and 2) 03/09/2019 (2) CAD (coronary artery disease) Code(s): I25.10 - ATHSCL HEART DISEASE OF [place] CORONARY ARTERY W/O ANG PCTRS Status: Acute Qualifiers: Coronary Disease-Associated Artery/Lesion type: bypass graft [place] vs. transplanted heart: [place] heart (3) Dyslipidemia Code(s): E78.5 - HYPERLIPIDEMIA, UNSPECIFIED Status: Acute (4) Tobacco abuse Code(s): Z72.0 - TOBACCO USE Status: Chronic (5) NSTEMI (non-ST elevated myocardial infarction) Code(s): I21.4 - NON-ST ELEVATION (NSTEMI) MYOCARDIAL INFARCTION Status: Acute (6) Obesity (BMI 30.0-34.9) Code(s): E66.9 - OBESITY, UNSPECIFIED Status: Chronic - Plan is on asp, lipitor -: has chest tubes -: post op recovering well -: meds will be optimized slowly -: hemostable, oral diet * . Review of Systems - Medications/Allergies Allergies/Adverse Reactions: Allergies Allergy/AdvReac Type Severity Reaction Status Date / Time Sulfa (Sulfonamide Allergy Verified 03/08/19 02:01 Antibiotics) Medications: Current Medications Acetaminophen (Tylenol) 650 mg PO Q6H PRN PRN Reason: Headache/Fever Or Mild Pain Hydrocodone Bitart/Acetaminophen ([place] 5/325) 1 tab PO Q4H PRN PRN Reason: Moderate Pain (4-6) Hydrocodone Bitart/Acetaminophen ([place] 5/325) 2 tab PO Q4H PRN PRN Reason: Severe Pain (7-10) Last Admin: 03/10/19 13:18 Dose: 2 tab Al Hydroxide/Mg Hydroxide (Maalox) 30 ml PO Q4H PRN PRN Reason: Indigestion Albumin Human (Albumin 5%) 12.5 gm IVPB Q6H PRN PRN Reason: To Maintain SBP> 90 mmHG Stop: 03/10/19 15:26 Albumin Human (Albumin 5%) 25 gm IVPB Q6H PRN PRN Reason: To Maintain SBP > 90 mmHG Stop: 03/10/19 15:26 Albuterol/Ipratropium (Duoneb) 3 ml NEB X8PI-PR PRN PRN Reason: SHORTNESS OF BREATH Aspirin (Aspirin) 325 mg PO DAILY JUAN A Last Admin: 03/10/19 09:15 Dose: 325 mg Atorvastatin Calcium (Lipitor) 40 mg PO HS JUAN A Bisacodyl (Dulcolax) 10 mg PO Q12H PRN PRN Reason: Constipation Bisacodyl (Dulcolax) 10 mg [place] Q12H PRN PRN Reason: Constipation Fentanyl (Sublimaze) 25 mcg SLOW IVP Q2H PRN PRN Reason: Moderate Pain (4-6) Stop: 03/11/19 15:06 Last Admin: 03/09/19 17:56 Dose: 25 mcg Fentanyl (Sublimaze) 50 mcg SLOW IVP Q2H PRN PRN Reason: Severe Pain (7-10) Stop: 03/11/19 15:06 Last Admin: 03/10/19 11:05 Dose: 50 mcg Guaifenesin/Dextromethorphan (Robitussin Dm) 15 ml PO Q4H PRN PRN Reason: Cough Hydralazine HCl (Apresoline) 10 mg SLOW IVP Q6H PRN PRN Reason: To Maintain SBP< 140mmHG Dopamine HCl/Dextrose (Dopamine 400 Mg/D5w 250 Ml) 250 mls @ 0 mls/hr IVPB PRN PRN; Protocol PRN Reason: To maintain SBP > 90 mmHG Hetastarch/Sodium Chloride (Hespan) 500 mls @ 0 mls/hr IVPB PRN PRN PRN Reason: To Maintain SBP > 90mmHg Stop: 03/10/19 15:06 Norepinephrine Bitartrate 8 mg (/ Sodium Chloride) 258 mls @ 0 mls/hr IVPB PRN PRN; Protocol PRN Reason: To maintain SBP > 90 mmHG Nicardipine HCl 25 mg/ Sodium (Chloride) 260 mls @ 0 mls/hr IVPB INF PRN; Protocol PRN Reason: To Maintain SBP< 140mmHG Nitroglycerin/Dextrose (Nitroglycerin 50 Mg/250 Ml Bot) 250 mls @ 0 mls/hr IVPB PRN PRN; Protocol PRN Reason: To Maintain SBP< 140mmHG Last Admin: 03/09/19 20:20 Dose: 250 mls Ketorolac Tromethamine (Toradol) 15 mg IVP Q6HR [facility] Stop: 03/12/19 18:01 Last Admin: 03/10/19 12:16 Dose: 15 mg Morphine Sulfate (Morphine) 2 mg SLOW IVP Q15MIN PRN PRN Reason: Severe Pain (7-10) Ondansetron HCl (Zofran) 4 mg IVP Q6H PRN PRN Reason: Nausea/Vomiting Last Admin: 03/09/19 17:15 Dose: 4 mg Polyethylene Glycol (Miralax) 17 gm PO DAILY [facility] Last Admin: 03/10/19 09:21 Dose: Not Given Potassium Chloride (Kcl) 20 meq IVPB PRN PRN PRN Reason: K level </= 4.0
[2019-03-10] MEDS: Atorvastatin Calcium 40 MG TAB PO SCH (20:07)
[2019-03-11] MEDS: HYDROcodone/Acetaminophen 5/325 mg Tablet PO PRN ×4 (04:35→20:32)
[2019-03-11] MEDS: Ketorolac Tromethamine 30 MG/ML VIAL IVP SCH (04:36)
[2019-03-11 05:07] LABS: Anion Gap 10 mmol/L (10-20); BUN (Urea Nitrogen) 11 mg/dL (8.9-20.6); Calc. Creatinine Clearance 175 mL/min (70-130); Calcium 8.6 mg/dL (7.8-10.44); Carbon Dioxide 26 mmol/L (22-29); Chloride 103 mmol/L (98-107); Estimated GFR-MDRD Greater than 90; Glucose 115 mg/dL (70-105); Sodium 135 mmol/L (136-145)
[2019-03-11 05:09] LABS: #Lymphocytes 1.1 thou/uL (1.20-3.40); #Monocytes 1.7 thou/uL (0.11-0.59); %Basophils 0.1 % (0.0-1.0); %Eosinophils 0.2 % (0.0-10.0); %Lymphocytes 7.2 % (21.0-51.0); %Monocytes 11.7 % (0.0-10.0); %Neutrophils 80.7 % (42.0-75.0); Hemoglobin 13.4 g/dL (14.0-18.0); Mean Corpuscular HGB CONC 33.4 g/dL (32.0-36.0); Mean Corpuscular Hemoglobin 29.5 pg (27.0-31.0); Mean Corpuscular Volume 88.4 fL (78.0-98.0); Mean Platelet Volume 10.8 fL (7.4-10.4); Platelet Count 116 thou/uL (130-400); Platelet Morphology Comment Appears Decreased; RBC Distribution Width 12.7 % (11.5-14.5); Red Blood Cell (RBC) Count 4.53 mill/uL (4.70-6.10); White Blood Cell (WBC) Count 14.9 thou/uL (4.8-10.8)
[2019-03-11] MEDS: Ondansetron PF 4 MG/2 ML Vial IVP PRN (07:08)
[2019-03-11] MEDS: Polyethylene Glycol 3350 17 GM Packet PO SCH (07:08)
[2019-03-11] MEDS: Aspirin 325 MG TAB PO SCH (07:08)
--- NOTE | 2019-03-11 07:40 | RAD ---
FRONTAL RADIOGRAPH CHEST: 03/11/2019 COMPARISON: 03/10/2019 HISTORY: Open heart surgery. FINDINGS: Stable drainage catheter overlies left lung base. Stable right-sided vascular catheter and midline s ternotomy wires. Drainage catheter overlies the right cardiophrenic angle, stable. Persistent dense opacity in the left base suggests left lower lobe consolidation/collapse. No significant inter rupali change. IMPRESSION: Stable postoperative appearance of the chest. Transcribed Date/Time: 03/11/2019 7:54 AM
--- NOTE | 2019-03-11 09:49 | PDOC.CTH ---
Cardiology Progress Note - Subjective The pt seen and examined. No overnight events. No cardiac complaints. He nauseated this AM. - Objective Vital Signs Temp Pulse Ox 03/11/19 08:00 96 03/11/19 07:00 98.4 F 03/11/19 05:00 98.6 F 03/11/19 00:00 99.0 F Weight 220 lb 14.451 oz 03/10/19 03/11/19 03/12/19 06:59 06:59 06:59 Intake Total 1066.2 1100 120 Output Total 1100 1785 Balance -33.8 -685 120 - Physical Examination General/Neuro: alert & oriented x3 Neck: no JVD present Lungs: CTA Heart: RRR Abdomen: soft Extremities: other: (Mild Generalized edema) - Labs Result Diagrams: 03/11/19 04:30 03/11/19 04:30 Troponin/CKMB CK-MB (CK-2) 4.1 ng/mL (0-6.6) 03/07/19 23:09 Troponin I 1.328 ng/mL (< 0.028) H* 03/08/19 05:11 - Assessment/Plan 1. CAD with S/P CABG x5 with COWART-LAD, SVG-PDA, SVG-Diag, SVG-OM1 and OM2 on 08/2019 - On ASA 325mg qd, and Lipitor 40mg qd. will start Coreg 3.125mg BID from tonight. 2. HLD - On Lipitor 40mg qd 3. Tobacco abuse - smoking cessation education given to the pt and family MAR reviewed * Echo on 03/09/2019 with EF 50-55%, mild dilated LA, trace MR and TR, and mild NV Pt. seen and eval. by me. I agree with the A/P by the ADVERTISING DISPLAY ROTATOR. He is doing well s/p CABG. Chest clear. RRR. No edema. [email or web address] Review of Systems - Review of Systems Constitutional: reports: no symptoms reported EENTM: reports: no symptoms reported Respiratory: reports: no symptoms reported Cardiac (ROS): reports: no symptoms reported ABD/GI: reports: see HPI
[2019-03-11] MEDS ORDERED: Bisacodyl 10 MG SUPP PR PRN (09:55)
[2019-03-11] MEDS ORDERED: Bisacodyl 5 MG TAB PO PRN (09:55)
[2019-03-11] MEDS ORDERED: Fentanyl 100 MCG/2 ML VIAL SLOW IVP PRN (09:55)
[2019-03-11] MEDS ORDERED: Mineral Oil ENEMA PR PRN (09:55)
[2019-03-11] MEDS ORDERED: Guaifenesin DM 100-10/5 ML UDCUP PO PRN (09:55)
[2019-03-11] MEDS ORDERED: diphenhydrAMINE 25 MG CAP PO PRN (09:55)
[2019-03-11] MEDS ORDERED: Mag-Al 1200 mg/1200 mg/30 ML UDCUP PO PRN (09:55)
[2019-03-11] MEDS ORDERED: Zolpidem Tartrate 5 MG TAB PO PRN (09:55)
[2019-03-11] MEDS ORDERED: Ondansetron PF 4 MG/2 ML Vial IVP PRN (09:55)
[2019-03-11] MEDS ORDERED: Nitroglycerin 0.4 MG TAB (25 Tab Bottle) SL PRN (09:55)
[2019-03-11] MEDS ORDERED: Acetaminophen 325 MG TAB PO PRN (09:55)
[2019-03-11] MEDS ORDERED: Enoxaparin Sodium 40 MG/0.4 ML SYRINGE SC SCH (10:15)
[2019-03-11] MEDS ORDERED: Furosemide 40 MG TAB PO SCH (10:15)
[2019-03-11] MEDS ORDERED: Famotidine 20 MG TAB PO SCH (10:15)
[2019-03-11] MEDS ORDERED: Metoprolol Tartrate 25 MG TAB PO SCH (10:15)
[2019-03-11] MEDS ORDERED: Potassium Chloride 10 MEQ TAB PO SCH (10:15)
--- NOTE | 2019-03-11 12:54 | PDOC.PN ---
- Subjective Encounter Start Date: 03/11/19 Encounter Start Time: 10:00 -: old records requested/rev Patient seen and examined. No new complaints. No overnight events - Objective Resuscitation Status - Order Detail: 03/08/19 01:52 Resuscitation Status Routine Resuscitation Status: FULL: Full Resuscitation MAR Reviewed: Yes Vital Signs & Weight: Vital Signs (12 hours) Temp Pulse Resp BP Pulse Ox 03/11/19 11:05 98.8 F 88 22 H 113/63 95 03/11/19 09:54 99.1 F 92 18 129/75 95 03/11/19 08:00 96 03/11/19 07:00 98.4 F 03/11/19 05:00 98.6 F Weight Weight 220 lb 14.451 oz Most Recent Monitor Data Heart Rate from ECG 89 NIBP 118/72 NIBP BP-Mean 87 Respiration from ECG 22 SpO2 93 I&O: 03/10/19 03/11/19 03/12/19 06:59 06:59 06:59 Intake Total 1066.2 1100 220 Output Total 1100 1785 0 Balance -33.8 -685 220 Result Diagrams: 03/11/19 04:30 03/11/19 04:30 EKG Reviewed by me: Yes Phys Exam - Physical Examination Constitutional: NAD HEENT: PERRLA, moist MMs, sclera anicteric Neck: no JVD, supple Respiratory: no wheezing, no rales, no rhonchi Cardiovascular: RRR, no significant murmur, no rub surgical site with dressing Gastrointestinal: soft, non-tender, no distention, positive bowel sounds Musculoskeletal: no edema, pulses present Neurological: non-focal, normal sensation, moves all 4 limbs Lymphatic: no nodes Psychiatric: normal affect, A&O x 3 Skin: no rash, normal turgor Dx/Plan (1) CAD (coronary artery disease) Code(s): I25.10 - ATHSCL HEART DISEASE OF [place] CORONARY ARTERY W/O ANG PCTRS Status: Acute Qualifiers: Coronary Disease-Associated Artery/Lesion type: bypass graft [place] vs. transplanted heart: [place] heart (2) Dyslipidemia Code(s): E78.5 - HYPERLIPIDEMIA, UNSPECIFIED Status: Acute (3) NSTEMI (non-ST elevated myocardial infarction) Code(s): I21.4 - NON-ST ELEVATION (NSTEMI) MYOCARDIAL INFARCTION Status: Acute (4) S/P CABG (coronary artery bypass graft) Code(s): Z95.1 - PRESENCE OF AORTOCORONARY BYPASS GRAFT Status: Acute Comment: cabg x5 (benjamin to very small lad, svg to distal rca, pda, diagonal, Om1 and 2) 03/09/2019 (5) Obesity (BMI 30.0-34.9) Code(s): E66.9 - OBESITY, UNSPECIFIED Status: Chronic (6) Tobacco abuse Code(s): Z72.0 - TOBACCO USE Status: Chronic - Plan cont current plan of care, plan discussed w/ family * today plan for transfer to [facility] * continue cardiac rehab * medication reviewed as below * symptomatic treatment * discussed with * continue below mentioned medical treatment . Review of Systems - Review of Systems ENT: negative: Ear Pain, Ear Discharge, Nose Pain, Nose Discharge, Nose Congestion, Mouth Pain, Mouth Swelling, Throat Pain, Throat Swelling, Other Respiratory: negative: Cough, Dry, Shortness of Breath, Hemoptysis, SOB with Excertion, Pleuritic Pain, Sputum, Wheezing Cardiovascular: negative: chest pain, palpitations, orthopnea, paroxysmal nocturnal dyspnea, edema, light headedness, other Gastrointestinal: negative: Nausea, Vomiting, Abdominal Pain, Diarrhea, Constipation, Melena, Hematochezia, Other Genitourinary: negative: Dysuria, Frequency, Incontinence, Hematuria, Retention , Other Musculoskeletal: negative: Neck Pain, Shoulder Pain, Arm Pain, Back Pain, Hand Pain, Leg Pain, Foot Pain, Other Skin: negative: Rash, Lesions, Alfonso, Bruising, Other - Medications/Allergies Allergies/Adverse Reactions: Allergies Allergy/AdvReac Type Severity Reaction Status Date / Time Sulfa (Sulfonamide Allergy Verified 03/08/19 02:01 Antibiotics) Medications: Current Medications Acetaminophen (Tylenol) 650 mg PO Q6H PRN PRN Reason: Headache/Fever or Mild Pain Hydrocodone Bitart/Acetaminophen ([place] 5/325) 1 tab PO Q4H PRN PRN Reason: Moderate Pain (4-6) Hydrocodone Bitart/Acetaminophen ([place] 5/325) 2 tab PO Q4H PRN PRN Reason: Severe Pain (7-10) Last Admin: 03/11/19 10:29 Dose: 2 tab Al Hydroxide/Mg Hydroxide (Maalox) 30 ml PO Q4H PRN PRN Reason: Indigestion Albuterol/Ipratropium (Duoneb) 3 ml NEB [id number] PRN PRN Reason: Respiratory Distress Aspirin (Ecotrin) 325 mg PO DAILY [facility] Atorvastatin Calcium (Lipitor) 40 mg PO HS [facility] Last Admin: 03/10/19 20:07 Dose: 40 mg Bisacodyl (Dulcolax) 10 mg PO Q12H PRN PRN Reason: Constipation Bisacodyl (Dulcolax) 10 mg [place] Q12H PRN PRN Reason: Constipation Carvedilol (Coreg) 3.125 mg PO BID-WM [facility] Diphenhydramine HCl (Benadryl) 25 mg PO Q6H PRN PRN Reason: Itching & Insomnia or Kulwant Cheo Enoxaparin Sodium (Lovenox) 40 mg SC 0900 [facility] Famotidine (Pepcid) 20 mg PO BID [facility] Fentanyl (Sublimaze) 50 mcg SLOW IVP Q2H PRN PRN Reason: Severe breakthrough pain Furosemide (Lasix) 40 mg PO DAILY [facility] Guaifenesin/Dextromethorphan (Robitussin Dm) 15 ml PO Q4H PRN PRN Reason: Cough Metoprolol Tartrate (Lopressor) 12.5 mg PO BID [facility] Mineral Oil (Fleet Mineral Oil) 133 ml [place] DAILYPRN PRN PRN Reason: Constipation Nitroglycerin (Nitrostat) 0.4 mg SL Q5MIN PRN PRN Reason: Chest Pain Ondansetron HCl (Zofran) 4 mg IVP Q6H PRN PRN Reason: Nausea/Vomiting Polyethylene Glycol (Miralax) 17 gm PO DAILY [facility] Last Admin: 03/11/19 07:08 Dose: 17 gm Potassium Chloride (Klor-Con 10) 10 meq PO QAM-WM [facility] Zolpidem Tartrate (Ambien) 5 mg PO HSPRN PRN PRN Reason: Insomnia
[2019-03-11] MEDS: Carvedilol 3.125 MG TAB PO SCH (16:20)
[2019-03-11] MEDS: Metoprolol Tartrate 25 MG TAB PO SCH (20:32)
[2019-03-11] MEDS: Famotidine 20 MG TAB PO SCH (20:32)
[2019-03-11] MEDS: Atorvastatin Calcium 40 MG TAB PO SCH (20:32)
--- NOTE | 2019-03-11 21:10 | EKG ---
Test Reason : Blood Pressure : / mmHG Vent. Rate : 059 BPM Atrial Rate : 059 BPM P-R Int : 138 ms QRS Dur : 086 ms QT Int : 416 ms P-R-T Axes : 036 056 -59 degrees QTc Int : 411 ms Sinus bradycardia Possible Anterior infarct (cited on or before 07-NOV-2010) Abnormal ECG When compared with ECG of 08-MAR-2019 00:01, (Unconfirmed) No significant change was found Confirmed by Prosper DE LA CRUZ ([id number]) on 03/11/2019 9:10:18 PM Referred By: Confirmed By:Prosper DE LA CRUZ
--- NOTE | 2019-03-11 21:20 | EKG ---
Test Reason : POST OP CABG Blood Pressure : / mmHG Vent. Rate : 086 BPM Atrial Rate : 086 BPM P-R Int : 128 ms QRS Dur : 088 ms QT Int : 398 ms P-R-T Axes : 070 081 -40 degrees QTc Int : 476 ms Sinus rhythm with Fusion complexes Cannot rule out Anterior infarct (cited on or before 07-NOV-2010) Abnormal ECG When compared with ECG of 08-MAR-2019 11:06, (Unconfirmed) Fusion complexes are now Present ST now depressed in Anterior leads QT has lengthened Confirmed by Prosper DE LA CRUZ ([id number]) on 03/11/2019 9:20:17 PM Referred By: MAGALYS Confirmed By:Prosper DE LA CRUZ
[2019-03-12] MEDS: HYDROcodone/Acetaminophen 5/325 mg Tablet PO PRN ×5 (00:36→21:21)
[2019-03-12] MEDS ORDERED: Sodium Chloride 0.9% 10 ML ONE (09:03)
[2019-03-12] MEDS: Aspirin 325 mg Enteric Coated Tablet PO SCH (09:34)
[2019-03-12] MEDS: Potassium Chloride 10 MEQ TAB PO SCH (09:34)
[2019-03-12] MEDS: Metoprolol Tartrate 25 MG TAB PO SCH ×2 (09:35→21:21)
[2019-03-12] MEDS: Furosemide 40 MG TAB PO SCH (09:35)
[2019-03-12] MEDS: Famotidine 20 MG TAB PO SCH ×2 (09:35→21:21)
[2019-03-12] MEDS: Carvedilol 3.125 MG TAB PO SCH ×2 (09:36→16:14)
[2019-03-12] MEDS: Polyethylene Glycol 3350 17 GM Packet PO SCH (09:37)
[2019-03-12] MEDS: Enoxaparin Sodium 40 MG/0.4 ML SYRINGE SC SCH (09:37)
--- NOTE | 2019-03-12 10:25 | EKG ---
Test Reason : Blood Pressure : / mmHG Vent. Rate : 076 BPM Atrial Rate : 076 BPM P-R Int : 140 ms QRS Dur : 092 ms QT Int : 362 ms P-R-T Axes : 068 062 -81 degrees QTc Int : 407 ms Normal sinus rhythm Possible Left atrial enlargement T wave inversion II,III,aVF,V4-V6 Confirmed by GIAN PRO ([id number]), senior editor MEME AVALOS ([id number]) on 03/12/2019 10:25:08 AM Referred By: Confirmed By:GIAN PRO
--- NOTE | 2019-03-12 10:26 | EKG ---
Test Reason : Blood Pressure : / mmHG Vent. Rate : 070 BPM Atrial Rate : 070 BPM P-R Int : 148 ms QRS Dur : 088 ms QT Int : 386 ms P-R-T Axes : 053 052 -53 degrees QTc Int : 416 ms Normal sinus rhythm Possible Left atrial enlargement T wave inversion, II,III, aVF, V5-V6 Confirmed by GIAN PRO ([id number]), senior editor MEME AVALOS ([id number]) on 03/12/2019 10:25:48 AM Referred By: Confirmed By:GIAN PRO
[2019-03-12] MEDS ORDERED: Fleet Enema 133 ML BOT PR PRN (11:19)
--- NOTE | 2019-03-12 11:20 | PDOC.PN ---
- Subjective Encounter Start Date: 03/12/19 Encounter Start Time: 08:15 pt has constipation Patient seen and examined. No overnight events - Objective Resuscitation Status - Order Detail: 03/08/19 01:52 Resuscitation Status Routine Resuscitation Status: FULL: Full Resuscitation MAR Reviewed: Yes Vital Signs & Weight: Vital Signs (12 hours) Temp Pulse Resp BP BP Pulse Ox 03/12/19 08:00 99.3 F 101 H 18 133/74 92 L 03/12/19 05:46 95 03/12/19 03:21 98.4 F 85 18 130/70 95 Weight Weight 212 lb 9.6 oz Most Recent Monitor Data Heart Rate from ECG 89 NIBP 118/72 NIBP BP-Mean 87 Respiration from ECG 22 SpO2 93 I&O: 03/11/19 03/12/19 03/13/19 06:59 06:59 06:59 Intake Total 1100 1360 Output Total 1785 650 Balance -685 710 Result Diagrams: 03/11/19 04:30 03/11/19 04:30 EKG Reviewed by me: Yes Phys Exam - Physical Examination Constitutional: NAD HEENT: PERRLA, moist MMs, sclera anicteric Neck: no JVD, supple Respiratory: no wheezing, no rales, no rhonchi Cardiovascular: RRR, no significant murmur, no rub surgical site clean Gastrointestinal: soft, non-tender, no distention, positive bowel sounds Musculoskeletal: no edema, pulses present Neurological: non-focal, normal sensation, moves all 4 limbs Lymphatic: no nodes Psychiatric: normal affect, A&O x 3 Skin: no rash, normal turgor Dx/Plan (1) CAD (coronary artery disease) Code(s): I25.10 - ATHSCL HEART DISEASE OF [place] CORONARY ARTERY W/O ANG PCTRS Status: Acute Qualifiers: Coronary Disease-Associated Artery/Lesion type: bypass graft [place] vs. transplanted heart: [place] heart (2) Dyslipidemia Code(s): E78.5 - HYPERLIPIDEMIA, UNSPECIFIED Status: Acute (3) NSTEMI (non-ST elevated myocardial infarction) Code(s): I21.4 - NON-ST ELEVATION (NSTEMI) MYOCARDIAL INFARCTION Status: Acute (4) S/P CABG (coronary artery bypass graft) Code(s): Z95.1 - PRESENCE OF AORTOCORONARY BYPASS GRAFT Status: Acute Comment: cabg x5 (benjamin to very small lad, svg to distal rca, pda, diagonal, Om1 and 2) 03/09/2019 (5) Obesity (BMI 30.0-34.9) Code(s): E66.9 - OBESITY, UNSPECIFIED Status: Chronic (6) Tobacco abuse Code(s): Z72.0 - TOBACCO USE Status: Chronic (7) Constipation Code(s): K59.00 - CONSTIPATION, UNSPECIFIED Status: Acute - Plan cont current plan of care, plan discussed w/ family * medication reviewed as below * symptomatic treatment * cardiac rehab * add fleet enema PRN * stool softener. Review of Systems - Review of Systems ENT: negative: Ear Pain, Ear Discharge, Nose Pain, Nose Discharge, Nose Congestion, Mouth Pain, Mouth Swelling, Throat Pain, Throat Swelling, Other Respiratory: negative: Cough, Dry, Shortness of Breath, Hemoptysis, SOB with Excertion, Pleuritic Pain, Sputum, Wheezing Cardiovascular: negative: chest pain, palpitations, orthopnea, paroxysmal nocturnal dyspnea, edema, light headedness, other Gastrointestinal: Constipation. negative: Nausea, Vomiting, Abdominal Pain, Diarrhea, Melena, Hematochezia, Other Genitourinary: negative: Dysuria, Frequency, Incontinence, Hematuria, Retention , Other Musculoskeletal: negative: Neck Pain, Shoulder Pain, Arm Pain, Back Pain, Hand Pain, Leg Pain, Foot Pain, Other Skin: negative: Rash, Lesions, Alfonso, Bruising, Other - Medications/Allergies Allergies/Adverse Reactions: Allergies Allergy/AdvReac Type Severity Reaction Status Date / Time Sulfa (Sulfonamide Allergy Verified 03/08/19 02:01 Antibiotics) Medications: Current Medications Acetaminophen (Tylenol) 650 mg PO Q6H PRN PRN Reason: Headache/Fever or Mild Pain Hydrocodone Bitart/Acetaminophen ([place] 5/325) 1 tab PO Q4H PRN PRN Reason: Moderate Pain (4-6) Hydrocodone Bitart/Acetaminophen ([place] 5/325) 2 tab PO Q4H PRN PRN Reason: Severe Pain (7-10) Last Admin: 03/12/19 10:15 Dose: 2 tab Al Hydroxide/Mg Hydroxide (Maalox) 30 ml PO Q4H PRN PRN Reason: Indigestion Albuterol/Ipratropium (Duoneb) 3 ml NEB [id number]-BR PRN PRN Reason: Respiratory Distress Aspirin (Ecotrin) 325 mg PO DAILY [facility] Last Admin: 03/12/19 09:34 Dose: 325 mg Atorvastatin Calcium (Lipitor) 40 mg PO HS [facility] Last Admin: 03/11/19 20:32 Dose: 40 mg Bisacodyl (Dulcolax) 10 mg PO Q12H PRN PRN Reason: Constipation Bisacodyl (Dulcolax) 10 mg [place] Q12H PRN PRN Reason: Constipation Carvedilol (Coreg) 3.125 mg PO BID-[facility] Last Admin: 03/12/19 09:36 Dose: 3.125 mg Diphenhydramine HCl (Benadryl) 25 mg PO Q6H PRN PRN Reason: Itching & Insomnia or Kulwant Cheo Enoxaparin Sodium (Lovenox) 40 mg SC 0900 [facility] Last Admin: 03/12/19 09:37 Dose: 40 mg Famotidine (Pepcid) 20 mg PO BID [facility] Last Admin: 03/12/19 09:35 Dose: 20 mg Fentanyl (Sublimaze) 50 mcg SLOW IVP Q2H PRN PRN Reason: Severe breakthrough pain Furosemide (Lasix) 40 mg PO DAILY [facility] Last Admin: 03/12/19 09:35 Dose: 40 mg Guaifenesin/Dextromethorphan (Robitussin Dm) 15 ml PO Q4H PRN PRN Reason: Cough Metoprolol Tartrate (Lopressor) 12.5 mg PO BID [facility] Last Admin: 03/12/19 09:35 Dose: 12.5 mg Mineral Oil (Fleet Mineral Oil) 133 ml [place] DAILYPRN PRN PRN Reason: Constipation Nitroglycerin (Nitrostat) 0.4 mg SL Q5MIN PRN PRN Reason: Chest Pain Ondansetron HCl (Zofran) 4 mg IVP Q6H PRN PRN Reason: Nausea/Vomiting Polyethylene Glycol (Miralax) 17 gm PO DAILY [facility] Last Admin: 03/12/19 09:37 Dose: 17 gm Potassium Chloride (Klor-Con 10) 10 meq PO QAM-[facility] Last Admin: 03/12/19 09:34 Dose: 10 meq Zolpidem Tartrate (Ambien) 5 mg PO HSPRN PRN PRN Reason: Insomnia
--- NOTE | 2019-03-12 12:00 | PDOC.CTH ---
Cardiology Progress Note - Subjective No complaints. Up walking regularly. No over night events. - Objective Vital Signs Temp Pulse Pulse Pulse Resp BP BP 03/12/19 11:53 101 H 97 131/72 151/89 H 03/12/19 08:00 99.3 F 101 H 18 03/12/19 05:46 03/12/19 03:21 98.4 F 85 18 BP BP Pulse Ox Pulse Ox Pulse Ox 03/12/19 11:53 96 96 03/12/19 08:00 133/74 92 L 03/12/19 05:46 95 03/12/19 03:21 130/70 95 Weight 212 lb 9.6 oz 03/11/19 03/12/19 03/13/19 06:59 06:59 06:59 Intake Total 1100 1360 Output Total 1785 650 Balance -685 710 - Physical Examination General/Neuro: alert & oriented x3 Neck: no JVD present Lungs: CTA Heart: RRR Abdomen: NT/ND Extremities: other: (no edema) - Telemetry Telemetry Rhythm: NSR - Labs Result Diagrams: 03/11/19 04:30 03/11/19 04:30 Troponin/CKMB CK-MB (CK-2) 4.1 ng/mL (0-6.6) 03/07/19 23:09 Troponin I 1.328 ng/mL (< 0.028) H* 03/08/19 05:11 - Assessment/Plan 1. CAD with S/P CABG x 5 (COWART-LAD, SVG-PDA, SVG-Diag, SVG-OM1 and OM2 on 03/09) 2. HLD 3. Tobacco abuse - smoking cessation education done Plan: Continue ambulating and IS. Potential d/c tomorrow. On ASA 325mg, Lipitor 40mg qd, Coreg 3.125mg BID. Pt seen and examined. Agree with the above Statin, ASA, BB, ACEI Counseled on not smoking Ambulate and IS
[2019-03-12] MEDS: Atorvastatin Calcium 40 MG TAB PO SCH (21:21)
[2019-03-13] MEDS ORDERED: Magnesium Citrate 300 ML BOT PO PRN (08:35)
[2019-03-13] MEDS ORDERED: Milk Of Magnesia 30 ML UDCUP PO PRN (08:35)
[2019-03-13] MEDS: Aspirin 325 mg Enteric Coated Tablet PO SCH (09:18)
[2019-03-13] MEDS: Famotidine 20 MG TAB PO SCH (09:19)
[2019-03-13] MEDS: Furosemide 40 MG TAB PO SCH (09:19)
[2019-03-13] MEDS: Potassium Chloride 10 MEQ TAB PO SCH (09:23)
[2019-03-13] MEDS: Metoprolol Tartrate 25 MG TAB PO SCH (09:23)
[2019-03-13] MEDS: Carvedilol 3.125 MG TAB PO SCH (09:23)
[2019-03-13] MEDS: Enoxaparin Sodium 40 MG/0.4 ML SYRINGE SC SCH (09:23)
[2019-03-13] MEDS: Polyethylene Glycol 3350 17 GM Packet PO SCH (09:24)
--- NOTE | 2019-03-13 11:31 | PDOC.PN ---
- Subjective Encounter Start Date: 03/13/19 Encounter Start Time: 08:00 Patient seen and examined. No new complaints. No overnight events - Objective Resuscitation Status - Order Detail: 03/08/19 01:52 Resuscitation Status Routine Resuscitation Status: FULL: Full Resuscitation MAR Reviewed: Yes Vital Signs & Weight: Vital Signs (12 hours) Temp Pulse Pulse Pulse Resp BP BP 03/13/19 09:21 103 H 100 153/86 H 153/96 H 03/13/19 07:59 98.5 F 94 18 03/13/19 04:00 98.4 F 89 17 03/13/19 03:41 BP Pulse Ox Pulse Ox Pulse Ox 03/13/19 09:21 95 94 L 03/13/19 07:59 139/77 94 L 03/13/19 04:00 132/77 94 L 03/13/19 03:41 94 L Weight Weight 211 lb Most Recent Monitor Data Heart Rate from ECG 89 NIBP 118/72 NIBP BP-Mean 87 Respiration from ECG 22 SpO2 93 I&O: 03/12/19 03/13/19 03/14/19 06:59 06:59 06:59 Intake Total 1360 500 Output Total 650 1300 Balance 710 -800 Result Diagrams: 03/11/19 04:30 03/11/19 04:30 EKG Reviewed by me: Yes Phys Exam - Physical Examination Constitutional: NAD HEENT: PERRLA, moist MMs, sclera anicteric Neck: no JVD, supple Respiratory: no wheezing, no rales, no rhonchi Cardiovascular: RRR, no significant murmur, no rub Gastrointestinal: soft, non-tender, no distention, positive bowel sounds Musculoskeletal: no edema, pulses present Neurological: non-focal, normal sensation Lymphatic: no nodes Psychiatric: normal affect, A&O x 3 Skin: no rash, normal turgor Dx/Plan (1) CAD (coronary artery disease) Code(s): I25.10 - ATHSCL HEART DISEASE OF [place] CORONARY ARTERY W/O ANG PCTRS Status: Acute Qualifiers: Coronary Disease-Associated Artery/Lesion type: bypass graft [place] vs. transplanted heart: [place] (2) Dyslipidemia Code(s): E78.5 - HYPERLIPIDEMIA, UNSPECIFIED Status: Acute (3) NSTEMI (non-ST elevated myocardial infarction) Code(s): I21.4 - NON-ST ELEVATION (NSTEMI) MYOCARDIAL INFARCTION Status: Acute (4) S/P CABG (coronary artery bypass graft) Code(s): Z95.1 - PRESENCE OF AORTOCORONARY BYPASS GRAFT Status: Acute Comment: cabg x5 (benjamin to very small lad, svg to distal rca, pda, diagonal, Om1 and 2) 03/09/2019 (5) Obesity (BMI 30.0-34.9) Code(s): E66.9 - OBESITY, UNSPECIFIED Status: Chronic (6) Tobacco abuse Code(s): Z72.0 - TOBACCO USE Status: Chronic (7) Constipation Code(s): K59.00 - CONSTIPATION, UNSPECIFIED Status: Acute - Plan cont current plan of care * medication reviewed as below * symptomatic treatment * continue stool softener * will Dc when surgeon OK, may be tomorrow. Review of Systems - Review of Systems ENT: negative: Ear Pain, Ear Discharge, Nose Pain, Nose Discharge, Nose Congestion, Mouth Pain, Mouth Swelling, Throat Pain, Throat Swelling, Other Respiratory: negative: Cough, Dry, Shortness of Breath, Hemoptysis, SOB with Excertion, Pleuritic Pain, Sputum, Wheezing Cardiovascular: negative: chest pain, palpitations, orthopnea, paroxysmal nocturnal dyspnea, edema, light headedness, other Gastrointestinal: Constipation. negative: Nausea, Vomiting, Abdominal Pain, Diarrhea, Melena, Hematochezia, Other Genitourinary: negative: Dysuria, Frequency, Incontinence, Hematuria, Retention , Other Musculoskeletal: negative: Neck Pain, Shoulder Pain, Arm Pain, Back Pain, Hand Pain, Leg Pain, Foot Pain, Other - Medications/Allergies Allergies/Adverse Reactions: Allergies Allergy/AdvReac Type Severity Reaction Status Date / Time Sulfa (Sulfonamide Allergy Verified 03/08/19 02:01 Antibiotics) Medications: Current Medications Acetaminophen (Tylenol) 650 mg PO Q6H PRN PRN Reason: Headache/Fever or Mild Pain Hydrocodone Bitart/Acetaminophen (Echo 5/325) 1 tab PO Q4H PRN PRN Reason: Moderate Pain (4-6) Last Admin: 03/12/19 16:11 Dose: 1 tab Hydrocodone Bitart/Acetaminophen (Echo 5/325) 2 tab PO Q4H PRN PRN Reason: Severe Pain (7-10) Last Admin: 03/12/19 21:21 Dose: 2 tab Al Hydroxide/Mg Hydroxide (Maalox) 30 ml PO Q4H PRN PRN Reason: Indigestion Albuterol/Ipratropium (Duoneb) 3 ml NEB [id number] PRN PRN Reason: Respiratory Distress Aspirin (Ecotrin) 325 mg PO DAILY [facility] Last Admin: 03/13/19 09:18 Dose: 325 mg Atorvastatin Calcium (Lipitor) 40 mg PO HS [facility] Last Admin: 03/12/19 21:21 Dose: 40 mg Bisacodyl (Dulcolax) 10 mg PO Q12H PRN PRN Reason: Constipation Bisacodyl (Dulcolax) 10 mg MN Q12H PRN PRN Reason: Constipation Carvedilol (Coreg) 3.125 mg PO BID[facility] Last Admin: 03/13/19 09:23 Dose: 3.125 mg Diphenhydramine HCl (Benadryl) 25 mg PO Q6H PRN PRN Reason: Itching & Insomnia or Kulwant Cheo Enoxaparin Sodium (Lovenox) 40 mg SC 0900 [facility] Last Admin: 03/13/19 09:23 Dose: 40 mg Famotidine (Pepcid) 20 mg PO BID [facility] Last Admin: 03/13/19 09:19 Dose: 20 mg Fentanyl (Sublimaze) 50 mcg SLOW IVP Q2H PRN PRN Reason: Severe breakthrough pain Furosemide (Lasix) 40 mg PO DAILY [facility] Last Admin: 03/13/19 09:19 Dose: 40 mg Guaifenesin/Dextromethorphan (Robitussin Dm) 15 ml PO Q4H PRN PRN Reason: Cough Magnesium Citrate (Citrate Of Magnesia 300 Ml Bot) 300 ml PO ONE PRN PRN Reason: if no bm by 2 pm Stop: 03/13/19 23:59 Last Admin: 03/13/19 09:18 Dose: 300 ml Magnesium Hydroxide (Milk Of Magnesium) 30 ml PO DAILYPRN PRN PRN Reason: Constipation Metoprolol Tartrate (Lopressor) 12.5 mg PO BID [facility] Last Admin: 03/13/19 09:23 Dose: 12.5 mg Mineral Oil (Fleet Mineral Oil) 133 ml MN DAILYPRN PRN PRN Reason: Constipation Nitroglycerin (Nitrostat) 0.4 mg SL Q5MIN PRN PRN Reason: Chest Pain Ondansetron HCl (Zofran) 4 mg IVP Q6H PRN PRN Reason: Nausea/Vomiting Polyethylene Glycol (Miralax) 17 gm PO DAILY [facility] Last Admin: 03/13/19 09:24 Dose: 17 gm Potassium Chloride (Klor-Con 10) 10 meq PO QAM-WM [facility] Last Admin: 03/13/19 09:23 Dose: 10 meq Zolpidem Tartrate (Ambien) 5 mg PO HSPRN PRN PRN Reason: Insomnia
[2019-03-13] MEDS: HYDROcodone/Acetaminophen 5/325 mg Tablet PO PRN (11:51)
--- NOTE | 2019-03-13 13:20 | PDOC.CTH ---
Cardiology Progress Note - Subjective no complaints. discharge today planned - Objective Vital Signs Temp Pulse Pulse Pulse Resp BP BP 03/13/19 12:00 100.6 F H 92 18 03/13/19 09:21 103 H 100 153/86 H 153/96 H 03/13/19 07:59 98.5 F 94 18 03/13/19 04:00 98.4 F 89 17 03/13/19 03:41 BP Pulse Ox Pulse Ox Pulse Ox 03/13/19 12:00 131/78 97 03/13/19 09:21 95 94 L 03/13/19 07:59 139/77 94 L 03/13/19 04:00 132/77 94 L 03/13/19 03:41 94 L Weight 211 lb 03/12/19 03/13/19 03/14/19 06:59 06:59 06:59 Intake Total 1360 500 Output Total 650 1300 Balance 710 -800 - Physical Examination General/Neuro: alert & oriented x3 Neck: no JVD present Lungs: CTA Heart: RRR Abdomen: NT/ND - Telemetry Telemetry Rhythm: SR - Labs Result Diagrams: 03/11/19 04:30 03/11/19 04:30 Troponin/CKMB CK-MB (CK-2) 4.1 ng/mL (0-6.6) 03/07/19 23:09 Troponin I 1.328 ng/mL (< 0.028) H* 03/08/19 05:11 - Assessment/Plan 1. CAD s/p cabg x 5 2, htn 3. tobacco abuse Stable. Ok for discharge. Discussed activity, meds and f/u plans.
[2019-03-13 14:20] VITALS: BP 132/73; TEMP 98.5
--- NOTE | 2019-03-13 19:53 | DIS ---
DATE OF ADMISSION: 03/07/2019 DATE OF DISCHARGE: 03/13/2019 DIAGNOSES: 1. Coronary artery disease. 2. Sty-[id number]-[id number] myocardial infarction. PROCEDURES PERFORMED: 1. Cardiac catheterization. 2. Coronary artery bypass grafting on 03/09, with left internal mammary artery to left anterior descending. 3. Greater saphenous vein grafts to posterior descending artery, diagonal, obtuse marginal 1, and obtuse marginal 2. DESCRIPTION OF HOSPITAL STAY: Mr. Peña is a 39-year-old gentleman, who presented to the emergency department with chest pain. He had had undiagnosed chest pain and shortness of breath for a number of weeks. He had a bump in his troponin, which led to cardiac catheterization. This showed severe 3-vessel disease. He was taken to the operating room and underwent coronary artery bypass grafting as above on 03/09. Postoperatively, he has done very well. He has had no rhythm disturbances. At the time of discharge, he is ambulatory, tolerating regular diet, having good bowel and bladder function. Incisions are clean and dry without evidence of infection. DISCHARGE MEDICATIONS: Include: 1. Aspirin 325 mg daily. 2. Lipitor 40 mg at bedtime. 3. Coreg 3.125 mg b.i.d. 4. Lopressor 12.5 mg b.i.d. FOLLOWUP: Followup was with Dr. Gallegos in [address] Traylor in a month. Job ID: [id number]
--- NOTE | 2019-03-14 08:10 | DIS ---
DATE OF ADMISSION: 03/08/2019 DATE OF DISCHARGE: 03/13/2019 DISCHARGE DISPOSITION: Home. PRIMARY DISCHARGE DIAGNOSES: 1. Non-ST elevation myocardial infarction. 2. Status post coronary artery bypass grafting. 3. Coronary artery disease. 4. Constipation. SECONDARY DISCHARGE DIAGNOSES: 1. Tobacco abuse disorder. 2. Obesity with BMI 33. 3. Dyslipidemia. PRIMARY PROCEDURE/OPERATION: Cardiac catheterization, CABG. RADIOLOGICAL INVESTIGATION: Echocardiography, chest x-ray. SIGNIFICANT LABORATORY DATA: Hemoglobin 13.4. INR 1.1. Creatinine 0.79. DISCHARGE MEDICATIONS: 1. Aspirin 325 mg p.o. daily. 2. Lipitor 40 mg p.o. at bedtime. 3. Coreg 3.125 mg p.o. b.i.d. 4. MiraLAX 17 g p.o. daily. CONTRAINDICATION: None. CODE STATUS: Full code. 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 Gallegos was consulted for CABG. Dr. Traylor was following for NSTEMI. TEST RESULTS PENDING ON DISCHARGE: None. ALLERGIES: SULFA DRUGS. DISCHARGE PLAN: Posthospital, the patient will follow up with Dr. Gallegos on March 30, 2019, at 2:00 p.m. The patient has outpatient cardiac rehabilitation. The patient will follow up with Dr. Traylor on April 04, 2019, at 2:45 p.m. and the patient will make appointment with primary care physician on March 16, 2019, at 3:45 p.m. HOSPITAL COURSE: A 39-year-old male with above-mentioned medical problem, who was admitted by Dr. Gallegos. Please see his H and P for further details. The patient was admitted for non-ST elevation [place]. He was having typical anginal pain. Cardiology was consulted. Echocardiography was done, which showed normal EF. The patient underwent cardiac catheterization and found with multivessel coronary artery disease and recommended CABG. Dr. Gallegos did a CABG and after that, the patient was doing very well. The patient's hospital course was only complicated by mild constipation that was treated while in hospital. The patient was discharged by Dr. Golden Owen yesterday and he also dictated a discharge summary. Please see his discharge summary for additional information. The patient was seen and examined on the day of discharge. Please see my progress note from that day for more detail. Job ID: [id number]
[2019-03-14 15:01] LABS: Actual Bicarbonate (HCO3a) 20.2 mEq/L (22-28); Analyzer IN Cardio OR; Base Excess (BEa) -4.1 mEq/L (-2.0 to +3.0); CO2 Tension 34.9 mmHg (35.0-45.0); Calcium, Ionized 1.11 mmol/L (1.12-1.30); Hemoglobin (Hb) 15.3 g/dL (14.0-18.0); pH, Arterial 7.38 (7.35-7.45)
[2019-03-14 15:02] LABS: Actual Bicarbonate (HCO3v) 24 mEq/L (22-28); Analyzer IN Cardio OR; Base Excess -2.8 mEq/L (-2.0 to +3.0); Calcium, Ionized 1.04 mmol/L (1.16-1.32); Chloride (ABG LAB) 104 mmol/L (98-106); Hemoglobin (Hb) 13.1 g/dL (13.2-17.3); Potassium - ABG Lab 5.22 mmol/L (3.70-5.30); Sodium 135.7 mmol/L (133-146)
[2019-03-14 15:02] LABS: Actual Bicarbonate (HCO3a) 22.9 mEq/L (22-28); Analyzer IN Cardio OR; Base Excess (BEa) -3.4 mEq/L (-2.0 to +3.0); CO2 Tension 46.5 mmHg (35.0-45.0); Calcium, Ionized 1.03 mmol/L (1.12-1.30); Carboxyhemoglobin (COHb) 0.8 gm% (0.0-3.0); Hemoglobin (Hb) 12.3 g/dL (14.0-18.0); O2 Tension (PaO2) 405.2 mmHg (80.0-100.0); Potassium - ABG Lab 4.46 mmol/L (3.70-5.30); pH, Arterial 7.31 (7.35-7.45)
[2019-03-14 15:02] LABS: Actual Bicarbonate (HCO3a) 19.5 mEq/L (22-28); Analyzer IN Cardio OR; Base Excess (BEa) -5.7 mEq/L (-2.0 to +3.0); CO2 Tension 37.4 mmHg (35.0-45.0); Calcium, Ionized 1.07 mmol/L (1.12-1.30); Carboxyhemoglobin (COHb) 0.9 gm% (0.0-3.0); Hemoglobin (Hb) 14.6 g/dL (14.0-18.0); O2 Tension (PaO2) 139.9 mmHg (80.0-100.0); Potassium - ABG Lab 3.84 mmol/L (3.70-5.30); pH, Arterial 7.34 (7.35-7.45)
[2019-03-14 15:03] LABS: Actual Bicarbonate (HCO3a) 22.5 mEq/L (22-28); Analyzer IN Cardio OR; Base Excess (BEa) -3.3 mEq/L (-2.0 to +3.0); CO2 Tension 43.2 mmHg (35.0-45.0); Calcium, Ionized 1.05 mmol/L (1.12-1.30); Carboxyhemoglobin (COHb) 0.9 gm% (0.0-3.0); Potassium - ABG Lab 5.13 mmol/L (3.70-5.30); pH, Arterial 7.33 (7.35-7.45)
[2019-03-14 15:06] LABS: Puncture Site ALINE
[2019-03-14 15:06] LABS: Puncture Site ALINE
[2019-03-14 15:07] LABS: Puncture Site ALINE
[2019-03-14 15:07] LABS: Puncture Site ALINE
== END 2019-03-13 15:45 | disposition home or self-care (01) | DRG 234 ==
LOC: ERS 22:45 → 2NO 03-08 00:13 → CCU 03-09 10:59 → 2NO 03-11 09:51
PROVIDERS: ADMIT Hospitalist; ATTEND Hospitalist
PROC: 4A023N7 Measurement of Cardiac Sampling and Pressure, Left Heart, Percutaneous Approach (ICD-10-PCS; 2019-03-08)
PROC: B2111ZZ Fluoroscopy of Multiple Coronary Arteries using Low Osmolar Contrast (ICD-10-PCS; 2019-03-08)
PROC: B2151ZZ Fluoroscopy of Left Heart using Low Osmolar Contrast (ICD-10-PCS; 2019-03-08)
PROC: 02100Z9 Bypass Coronary Artery, One Artery from Left Internal Mammary, Open Approach (ICD-10-PCS; principal; 2019-03-09)
PROC: 021309W Bypass Coronary Artery, Four or More Arteries from Aorta with Autologous Venous Tissue, Open Approach (ICD-10-PCS; 2019-03-09)
PROC: 06BP4ZZ Excision of Right Saphenous Vein, Percutaneous Endoscopic Approach (ICD-10-PCS; 2019-03-09)
PROC: 5A1221Z Performance of Cardiac Output, Continuous (ICD-10-PCS; 2019-03-09)
DX: I21.4 Non-ST elevation (NSTEMI) myocardial infarction (principal); I25.10 Atherosclerotic heart disease of native coronary artery without angina pectoris; E78.5 Hyperlipidemia, unspecified; E66.9 Obesity, unspecified; K59.00 Constipation, unspecified; F17.210 Nicotine dependence, cigarettes, uncomplicated; R73.9 Hyperglycemia, unspecified; Z88.2 Allergy status to sulfonamides; Z68.33 Body mass index [BMI] 33.0-33.9, adult; Z71.6 Tobacco abuse counseling
CPT/HCPCS: 36415; 36416; 71045; 80048; 80053; 80061; 82550; 82553; 82805; 84484; 85025; 85610; 85730; 86850; 86900; 86901; 93005; 93010; 93306; 93458; 93798; 94002; 94640; 94760; 96372; C1769; J0690; J1642; J1644; J1650; J1885; J2250; J2270; J2405; J3010; J3475; J7050; J7620; P9045; Q9967; S0028